=== PATIENT | male | born 1945 | race Hispanic/Latino ===

== ENCOUNTER 2024-09-03 09:11 | Outpatient (CLI) | payer MEDICARE, MEDICAID | END 2024-09-03 09:12 | disposition home or self-care (01) | LOC: CSHSLEEP 09:11 | PROVIDERS: ATTEND Internal Medicine | DX: G47.33 Obstructive sleep apnea (adult) (pediatric) (principal); G47.61 Periodic limb movement disorder | CPT/HCPCS: 95811 ==

== ENCOUNTER 2024-11-30 12:50 | Outpatient (CLI) | payer MEDICARE, MEDICAID | END 2024-11-30 12:51 | disposition home or self-care (01) | LOC: CSHCP 12:50 | PROVIDERS: ATTEND Internal Medicine | DX: R06.09 Other forms of dyspnea (principal); J98.4 Other disorders of lung | CPT/HCPCS: 94060; 94664; 94729; 94760 ==

== ENCOUNTER 2025-07-19 08:56 | Outpatient (CLI) | payer MEDICARE, MEDICAID | END 2025-07-19 08:57 | disposition home or self-care (01) | LOC: CSHSLEEP 08:56 | PROVIDERS: ATTEND Internal Medicine | DX: G47.33 Obstructive sleep apnea (adult) (pediatric) (principal); I50.9 Heart failure, unspecified | CPT/HCPCS: 95810 ==

== ENCOUNTER 2025-09-14 08:58 | Outpatient (CLI) | payer MEDICARE, MEDICAID | END 2025-09-14 08:59 | disposition home or self-care (01) | LOC: CSHSLEEP 08:58 | PROVIDERS: ATTEND Internal Medicine | DX: G47.33 Obstructive sleep apnea (adult) (pediatric) (principal); I50.9 Heart failure, unspecified; G47.61 Periodic limb movement disorder | CPT/HCPCS: 95811 ==